=== PATIENT | female | born 1950 | race Caucasian/White ===

== ENCOUNTER 2021-06-13 16:18 | Emergency (ER) | payer MEDICARE ==
[~2021-06-13] VITALS: Ht 157.5 cm; Wt 63.5 kg
[2021-06-13 17:00] LABS: BASOPHILS # (AUTO) 0.1 (0.0-0.1); BASOPHILS % 0.8 % (0.0-1.0); EOSINOPHILS # (AUTO) 0.2 (0.0-0.4); EOSINOPHILS % 2.3 % (0.0-6.0); HEMATOCRIT 35.6 % (34.2-44.1); HEMOGLOBIN 9.6 g/dL (12.0-16.0); LYMPHOCYTES # (AUTO) 0.6 (1.0-3.2); MEAN CORPUSCULAR HEMOGLOBIN 21.3 pg (28-32); MEAN CORPUSCULAR VOLUME 78.9 fL (81-99); MONOCYTES # (AUTO) 0.7 (0.2-0.8); MONOCYTES % 8.4 % (4.4-11.3); NEUTROPHILS # (AUTO) 6.5 (2.1-6.9); PLATELET COUNT 213 x10e3/uL (140-360); RED BLOOD COUNT 4.51 x10e6/uL (3.6-5.1); RED CELL DISTRIBUTION WIDTH 16.4 % (11.7-14.4)
[2021-06-13 17:01] LABS: CLARITY,URINE SL CLOUDY (CLEAR); COLOR,URINE YELLOW (YELLOW); KETONES,URINE 1+ (NEGATIVE); LEUKOCYTE ESTERASE ,URINE NEGATIVE (NEGATIVE); NITRITE,URINE NEGATIVE (NEGATIVE); PROTEIN,URINE DIPSTICK NEGATIVE (NEGATIVE); URINE UROBILINOGEN 0.2 mg/dL (0.2 - 1)
[2021-06-13 17:13] LABS: BACTERIA,URINE MODERATE /HPF
[2021-06-13 17:18] LABS: ALBUMIN 3.5 g/dL (3.5-5.0); ALBUMIN/GLOBULIN RATIO 0.9 (0.8-2.0); ANION GAP 18.2 mmol/L (8-16); CALCIUM 9.6 mg/dL (8.4-10.2); CREATININE, SERUM 1.09 mg/dL (0.57-1.11); POTASSIUM 4.2 mmol/L (3.5-5.1)
[2021-06-13] MEDS ORDERED: ACETAMINOPHEN/1 EAC1 PO (18:17)
[2021-06-13] MEDS ORDERED: FEROSUL325 MG PO (18:17)
[2021-06-13] MEDS ORDERED: FARXIGA5 MG PO (18:18)
[2021-06-13] MEDS ORDERED: NYSTATIN1 EAC2 TOP (18:18)
[2021-06-13] MEDS ORDERED: MECLIZINE HCL12.5 MG PO (18:22)
[2021-06-13] MEDS ORDERED: NAMENDA10 MG PO (18:22)
[2021-06-13] MEDS ORDERED: ABILIFY5 MG PO (18:22)
[2021-06-13] MEDS ORDERED: PRAVASTATIN SOD40 MG PO (18:22)
[2021-06-13] MEDS ORDERED: ZOLOFT100 MG PO (18:22)
[2021-06-13] MEDS ORDERED: GLIPIZIDE5 MG PO (18:22)
[2021-06-13] MEDS ORDERED: METFORMIN HCL500 MG PO (18:22)
[2021-06-13] MEDS ORDERED: PROTONIX20 MG PO (18:24)
[2021-06-13] MEDS ORDERED: TYLENOL325 MG PO (18:24)
[2021-06-13] MEDS ORDERED: EXELON1 EACH PO (18:24)
[2021-06-13] MEDS ORDERED: LACTATED RINGER'S 1,000 ML INJ ONE (19:00)
[2021-06-13] MEDS ORDERED: CIPROFLOXACIN 500 MG TAB PO NR (19:05)
[2021-06-13] MEDS ORDERED: CIPRO500 MG PO (19:06)
== END 2021-06-14 00:40 | disposition home or self-care (01) ==
LOC: ER 16:20
DX: R41.82 Altered mental status, unspecified (principal); R73.9 Hyperglycemia, unspecified; E86.9 Volume depletion, unspecified; N39.0 Urinary tract infection, site not specified; W19.XXXA Unspecified fall, initial encounter; Z88.0 Allergy status to penicillin; S00.81XA Abrasion of other part of head, initial encounter; Z20.822 Contact with and (suspected) exposure to COVID-19
CPT/HCPCS: 36415; 70450; 71045; 72125; 72170; 80053; 81001; 82550; 82553; 83605; 84484; 85025; 87040; 87086; 93005; 99283; J7121; U0002